=== PATIENT | male | born 1995 | race Two or more races ===

== ENCOUNTER 2023-11-28 11:21 | Emergency (ER) | payer OTHER ==
[~2023-11-28] VITALS: Ht 175.3 cm; Wt 80.5 kg
[2023-11-28 12:02] VITALS: BP 126/82; PULSE 84; RESP 18; TEMP 98.1; O2SAT 98
[2023-11-28] MEDS: CYCLOBENZAPRINE HCL 10 MG TAB PO ONE (12:19)
[2023-11-28] MEDS ORDERED: CYCL-839 PO (13:35)
[2023-11-28] MEDS ORDERED: IBUP-1455 PO (13:39)
== END 2023-11-28 13:36 | disposition home or self-care (01) ==
LOC: ER 11:21
DX: S00.81XA Abrasion of other part of head, initial encounter (principal); M79.18 Myalgia, other site; M79.662 Pain in left lower leg; R51.9 Headache, unspecified; V89.2XXA Person injured in unspecified motor-vehicle accident, traffic, initial encounter; Y93.I9 Activity, other involving external motion; Y92.488 Other paved roadways as the place of occurrence of the external cause; Y99.8 Other external cause status
CPT/HCPCS: 70450; 73590